=== PATIENT | male | born 1985 | race Caucasian/White ===

== ENCOUNTER 2024-03-07 17:34 | Emergency (ER) | payer OTHER, SELFPAY ==
[2024-03-07 18:01] VITALS: BP 131/78; PULSE 92; RESP 12; TEMP 36.1; O2SAT 98; BMI 24.7
--- NOTE | 2024-03-07 18:24 | ED.NECK ---
HPI - Neck Pain/Injury <Peewee Steward PA-C - Last Filed: 03/07/24 18:30> General Chief Complaint: Neck Pain/Injury Stated Complaint: Herniated disc in neck, severe pain Time Seen by Provider: 03/07/24 18:08 Mode of arrival: Ambulatory History of Present Illness HPI Narrative: 38-year-old male with past medical history herniated cervical discs presents to the ED with an acute exacerbation of the neck pain. No trauma. Denies numbness, tingling, weakness. Patient states that his pain spontaneously was exacerbated when he was reading a book. Patient has tried Aleve with little relief. The acute on chronic pain has been ongoing for 2 and half weeks. Patient has also tried muscle relaxants and a course of prednisone with little relief. No fevers, chills, nausea, vomiting, neck stiffness. Related Data Previous Rx's Medication Instructions Recorded tramadol 50 mg tablet 50 mg PO Q8H PRN pain 3 days #10 03/07/24 tabs Allergies Allergy/AdvReac Type Severity Reaction Status Date / Time No Known Drug Allergies Allergy Verified 03/07/24 18:03 Review of Systems <Peewee Steward PA-C - Last Filed: 03/07/24 18:30> Constitutional Constitutional: Denies chills, Denies fatigue, Denies fever(s), Denies frequent falls, Denies lethargy and Denies weakness Eyes Eyes: Denies change in vision, Denies eye discharge, Denies irritation and Denies loss of vision ENT Ears, Nose, Mouth, and Throat: Denies change in voice, Denies dizziness, Reports neck pain, Denies sore throat and Denies throat swelling Cardiovascular Cardiovascular: Denies chest pain, Denies irregular heart rhythm, Denies lightheadedness, Denies palpitations, Denies dyspnea, Denies dyspnea on exertion and Denies orthopnea Respiratory Respiratory: Denies cough, Denies dyspnea, Denies dyspnea on exertion and Denies wheezing Gastrointestinal Gastrointestinal: Denies abdominal pain, Denies change in bowel habits, Denies diarrhea, Denies nausea and Denies vomiting Musculoskeletal Musculoskeletal: Reports neck pain and Denies numbness Integumentary/Breasts Skin/Breast: Denies pruritus, Denies erythema, Denies rash and Denies wounds Neurologic Neurologic: Denies behavioral changes, Denies confusion, Denies dizziness, Denies frequent falls, Denies loss of vision, Denies numbness and Denies weakness Psychiatric Psychiatric: Denies anxiety, Denies behavioral changes, Denies confusion, Denies depression, Denies homicidal ideation and Denies suicidal ideation Endocrine Endocrine: Denies fatigue, Denies flushing and Denies palpitations Hematologic/Lymphatic Hematologic/Lymphatic: Denies easy bruising Allergic/Immunologic Allergic/Immunologic: Denies urticaria, Denies throat swelling and Denies wheezing Patient History <Peewee Steward PA-C - Last Filed: 03/07/24 18:30> Social History Smoking Status: Never smoker Smoking Status: Never smoker alcohol intake frequency: a few times a month Substance Use Type: does not use Exam <Peewee Steward PA-C - Last Filed: 03/07/24 18:30> Narrative Exam Narrative: Const General:?cooperative, healthy appearing and comfortable HENAK Head:?normal to inspection Ears:?hearing grossly normal bilaterally Nose:?external nose normal Face and sinus:?normal facial exam and sinuses nontender Mouth:?oral mucosae normal Throat:?posterior oropharynx normal Eyes General:?appearance normal, both eyes and all related structures Neck Neck:?normal visual inspection and no lymphadenopathy noted Resp Effort & Inspection:?normal respiratory effort Auscultation:?clear to auscultation bilaterally Cardio Rate:?regular rate Rhythm:?regular rhythm Musculoskeletal No midline tenderness to palpation. No paraspinal tenderness to palpation. Full range of motion. Strength and sensation intact. Patient is neurovascularly intact. Neuro General:?patient alert, patient awake and patient oriented x3 Initial Vital Signs Initial Vital Signs: Vital Signs Temperature 97 F L 03/07/24 18:01 Pulse Rate 92 H 03/07/24 18:01 Respiratory Rate 12 03/07/24 18:01 Blood Pressure 131/78 03/07/24 18:01 Pulse Oximetry 98 03/07/24 18:01 Oxygen Delivery Method Room Air 03/07/24 18:01 <Katharina Guevara MD - Last Filed: 03/08/24 18:39> Initial Vital Signs Initial Vital Signs: Vital Signs Temperature 97 F L 03/07/24 18:01 Pulse Rate 92 H 03/07/24 18:01 Respiratory Rate 12 03/07/24 18:01 Blood Pressure 131/78 03/07/24 18:01 Pulse Oximetry 98 03/07/24 18:01 Oxygen Delivery Method Room Air 03/07/24 18:01 Course <Peewee Steward PA-C - Last Filed: 03/07/24 18:30> Vital Signs Vital signs: Vital Signs - 8 hr 03/07/24 18:01 Temperature 97 F L Pulse Rate 92 H Respiratory Rate 12 Blood Pressure 131/78 Pulse Oximetry 98 Oxygen Delivery Method Room Air <Katharina Guevara MD - Last Filed: 03/08/24 18:39> Vital Signs Vital signs: Vital Signs - 8 hr 03/07/24 18:01 Temperature 97 F L Pulse Rate 92 H Respiratory Rate 12 Blood Pressure 131/78 Pulse Oximetry 98 Oxygen Delivery Method Room Air MDM - Neck Pain/Injury <Peewee Steward PA-C - Last Filed: 03/07/24 18:30> MDM Narrative Medical decision making narrative: 38-year-old male with past medical history herniated cervical discs presents to the ED with an acute exacerbation of the neck pain. Physical exam is reassuring for no midline tenderness. There is no new trauma. Symptoms appear to be an exacerbation of chronic cervical disc herniations. Discussed with patient that we can trial a 2-3 day course of opioid medication for immediate relief until he can see his ortho specialist or other provider. Prescribed tramadol. ED return precautions were discussed with patient. Patient verbalized understanding. Medical records reviewed: Yes Discharge Plan Departure Patient Disposition: Home Clinical Impression: Neck pain Instructions: DI for Neck Pain Activity Restrictions/Additional Instructions: You were evaluated in the ED today for neck pain exacerbation from herniated discs. Given that Aleve has been ineffective in relieving your pain, you are being prescribed tramadol which is an opioid to take for the next 2-3 days. Please note that this medication might make you sleepy so avoid operating machinery or driving when taking it. Please follow-up with your ortho specialist as soon as possible. Return to the ED if you have worsening symptoms, numbness, tingling, weakness. Prescriptions: New tramadol 50 mg tablet 50 mg PO Q8H PRN (Reason: pain) 3 Days Qty: 10 0RF Referrals: Miscellaneous,[facility] [Primary Care Provider] - Stand Alone Forms: Patient Portal/API ED Sign-out <Katharina Guevara MD - Last Filed: 03/08/24 18:39> Cosign ED Attending Cosignature Attestation: I was immediately available in the department for consultation throughout this patient's visit. Katharina Guevara MD
[2024-03-07 19:01] VITALS: PULSE 72
== END 2024-03-07 18:28 | disposition home or self-care (01) ==
LOC: ED 18:22
PROVIDERS: Emergency Provider Student in an Organized Health Care Education/Training Program
DX: M54.2 Cervicalgia (principal)
CPT/HCPCS: 99281; 99282

== ENCOUNTER 2024-03-10 09:00 | Emergency (ER) | payer BC, SELFPAY ==
[2024-03-10 09:01] VITALS: BP 135/87; PULSE 103; RESP 14; TEMP 37.1; O2SAT 99; BMI 24.7
--- NOTE | 2024-03-10 09:09 | PC.NURSE ---
Pt having mid to upper back pain with numbness radiating down left arm.
[2024-03-10] MEDS: HYDROCODONE/ACET 5/325 TABLET 1 TAB PO (09:13)
--- NOTE | 2024-03-10 09:13 | ED.BACK ---
HPI - Back Pain/Injury General Chief Complaint: Back Pain/Injury Stated Complaint: herniated disc pain Time Seen by Provider: 03/10/24 09:01 Source: patient History of Present Illness HPI Narrative: Patient is a 38-year-old male. Has a known history of degenerative disc disease in his cervical spine. Has had MRIs. [place]. Over the past several days has been having increase in discomfort and numbness and tingling down into his left hand. He was seen here in the emergency department a couple days ago. No imaging studies were done. He was prescribed tramadol. He states that his symptoms have only improved slightly and he is out of the tramadol. He is traveling back to [place] tomorrow and has a follow-up with the spine surgery on Wednesday of next week. He is having some tingling down his left arm Related Data Previous Rx's Medication Instructions Recorded hydrocodone 5 mg-acetaminophen 325 1 tab PO Q8H PRN pain #30 tabs 03/10/24 mg tablet Allergies Allergy/AdvReac Type Severity Reaction Status Date / Time No Known Drug Allergies Allergy Verified 03/10/24 09:06 Review of Systems Review of Systems Narrative: See HPI Patient History Social History Smoking Status: Never smoker Smoking Status: Never smoker alcohol intake frequency: holidays/special occasions only Substance Use Type: does not use Exam Initial Vital Signs Initial Vital Signs: Vital Signs Temperature 98.7 F 03/10/24 09:01 Pulse Rate 103 H 03/10/24 09:01 Respiratory Rate 14 03/10/24 09:01 Blood Pressure 135/87 03/10/24 09:01 Pulse Oximetry 99 03/10/24 09:01 Oxygen Delivery Method Room Air 03/10/24 09:01 Const General: cooperative and comfortable Back/Spine/Pelvis Other: Mild discomfort with palpation of the cervical spine and left-sided paraspinal region Neuro Other: Tingling to light touch on his thumb index and ring finger of his left hand Course Orders Ordered: Discontinued Medications Hydrocodone Bitart/Acetaminophen (Hydrocodone/Acet 5/325 Tablet) 1 tab PO NOW ONE Stop: 03/10/24 09:11 Vital Signs Vital signs: Vital Signs - 8 hr 03/10/24 09:01 Temperature 98.7 F Pulse Rate 103 H Respiratory Rate 14 Blood Pressure 135/87 Pulse Oximetry 99 Oxygen Delivery Method Room Air MDM - Back Pain/Injury MDM Narrative Medical decision making narrative: Acute on chronic cervical spine discomfort with radiculopathy. There was no indication for imaging studies today. He is here for pain relief until he can get into see his orthopedic surgeon on Wednesday of next week. I will switch him from tramadol to [place]. This was sent to the pharmacy of his choice. He was given return precautions. He expressed understanding and agreement. Discharge Plan Departure Patient Disposition: Home Clinical Impression: Cervical disc disorder with radiculopathy Instructions: DI for Neck Pain Activity Restrictions/Additional Instructions: The medicine that you are prescribed today should be use as directed and as needed. Continue with the anti-inflammatories. You do need follow-up with your spine surgeon when you return home. Return to an emergency department for new symptoms Prescriptions: New hydrocodone-acetaminophen 5-325 mg tablet 1 tab PO Q8H PRN (Reason: pain) Qty: 30 0RF Referrals: Miscellaneous,[facility] [Primary Care Provider] - Stand Alone Forms: Patient Portal/API
[2024-03-10 09:34] VITALS: BP 124/79; PULSE 87; O2SAT 100
== END 2024-03-10 09:34 | disposition home or self-care (01) ==
PROVIDERS: Emergency Provider Emergency Medicine
DX: M50.10 Cervical disc disorder with radiculopathy, unspecified cervical region (principal)
CPT/HCPCS: 99283